=== PATIENT | female | born 1975 | race Caucasian/White ===

== ENCOUNTER → 2024-12-29 | Outpatient (CLI) | payer OTHER, SELFPAY ==
[2024-12-29 18:22] LABS: Ferritin 55 ng/mL (22-378)
== END | disposition home or self-care (01) ==
LOC: MTLAB 15:20
PROVIDERS: Referring Provider Physician Assistant Medical; Visit Provider Physician Assistant Medical
DX: L65.9 Nonscarring hair loss, unspecified (principal)
CPT/HCPCS: 36415; 82728